=== PATIENT | female | born 1965 | race Caucasian/White ===

== ENCOUNTER 2016-11-01 22:06 | Emergency (ER) | payer MEDICARE ==
[2016-11-01 22:18] VITALS: BP 115/99
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
--- NOTE | 2016-11-02 07:57 | RAD ---
INDICATION: Right shoulder pain COMPARISON: None TECHNIQUE: Routine frontal, Y and axial views were obtained. FINDINGS: There are no acute bony findings. The a.c. and glenohumeral joints are intact. There are findings of calcific tendinitis. IMPRESSION: CALCIFIC TENDINITIS
== END 2016-11-02 00:01 ==
LOC: ED 22:06
DX: M25.411 Effusion, right shoulder (principal); S50.01XA Contusion of right elbow, initial encounter; W07.XXXA Fall from chair, initial encounter; J44.9 Chronic obstructive pulmonary disease, unspecified; F17.210 Nicotine dependence, cigarettes, uncomplicated; Y92.511 Restaurant or cafe as the place of occurrence of the external cause
CPT/HCPCS: 99282

== ENCOUNTER 2018-02-02 23:21 | Emergency (ER) | payer MEDICARE ==
[2018-02-03] MEDS ORDERED: Ibuprofen TAB* 600 MG PO ONE (00:35)
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
[2018-02-03 01:03] VITALS: BP 111/82
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
[2018-02-03] MEDS ORDERED: NS 0.9% 1000 ML* 1,000 ML IV ONE (02:42)
== END 2018-02-03 01:33 | disposition home or self-care (01) ==
LOC: ED 23:21
DX: S09.90XA Unspecified injury of head, initial encounter (principal); W19.XXXA Unspecified fall, initial encounter; Y92.9 Unspecified place or not applicable; F17.210 Nicotine dependence, cigarettes, uncomplicated; S01.91XA Laceration without foreign body of unspecified part of head, initial encounter
CPT/HCPCS: 70450; 99283; A9270-GY